=== PATIENT | male | born 1995 | race American Indian/Alaskan Native ===

== ENCOUNTER 2024-07-10 18:56 | Emergency (ER) | payer MEDICAID, SELFPAY ==
[2024-07-10 18:56] VITALS: BMI 35.7
--- NOTE | 2024-07-10 19:34 | XR_ITS ---
Examination: Abdomen sonogram, Limited Date and time of exam: July 10, 2024 1949 hrs. Indications: Flank pain beginning today Technique: Real-time hernández scale transabdominal sonographic images of the upper abdomen obtained. Findings: Absent gallbladder Common bile duct 0.5 cm stone Pancreas obscured by bowel gas Liver 15.6 cm fatty infiltration no focal liver lesions Normal hepatopedal portal venous flow Patent IVC Impression: Absent gallbladder Normal common bile duct Fatty liver
[2024-07-10 19:35] VITALS: BP 142/79; PULSE 78; RESP 20; TEMP 36.9; O2SAT 96
--- NOTE | 2024-07-10 19:35 | PD.EDRME ---
Rapid Medical Screening Exam RME Arrival date/time: 07/10/24 18:56 28 year old male with c/o of abd/flank pain today I have greeted and performed a focused initial assessment of this patient. A comprehensive ED assessment and evaluation of the patient, analysis of all test results, and completion of the medical decision making process will be conducted by additional ED providers. Chief Complaint: Back Pain/Injury Time Seen by Provider: 07/10/24 19:34 Vital signs: Vital Signs Temperature 98.4 F 07/10/24 19:35 Pulse Rate 78 07/10/24 19:35 Respiratory Rate 20 07/10/24 19:35 Blood Pressure 142/79 H 07/10/24 19:35 Pulse Oximetry (%) 96 07/10/24 19:35 Oxygen Delivery Method Room Air 07/10/24 19:35
[2024-07-10] MEDS: LIDOCAINE 5% 1 PATCH TOP (19:44)
[2024-07-10] MEDS: CYCLObenzaPRINE 5 MG TABLET PO (19:45)
[2024-07-10 20:14] LABS: Collection Type, Urine Voided; Squamous Epithelial Cell,Urine 0 /hpf (0-5)
[2024-07-10 20:18] LABS: Basophils % (Auto) 0 % (0-2.5); Eosinophils % (Auto) 1 % (0-10); Hematocrit 45.9 % (41.0-53.0); Hemoglobin 15.9 g/dL (13.5-16.0); Immature Granulocytes % (Auto) 0 % (0-0); Immature Granulocytes Auto 0.02 Thou/mm3 (0.00-0.00); Lymphocytes # (Auto) 1.7 Thou/mm3 (1.0-4.8); Lymphocytes % (Auto) 22 % (10-50); Mean Corpuscular HGB Conc 34.6 g/dl (31.0-37.0); Mean Corpuscular Hemoglobin 29.8 pg (25.0-35.0); Mean Corpuscular Volume 86 fL (80-100); Monocytes # (Auto) 0.7 Thou/mm3 (0.0-0.8); Monocytes % (Auto) 8 % (0-12); Neutrophils # (Auto) 5.3 Thou/mm3 (1.8-7.7); Neutrophils % (Auto) 69 % (37-80); Nucleated Red Blood Cell % 0 /100 WBC (0); Platelet Count 319 Thou/mm3 (140-440); RDW Standard Deviation 38.7 fL (35.1-43.9); Red Blood Count 5.33 Miln/mm3 (4.50-5.90); White Blood Count 7.7 Thou/mm3 (3.8-10.6)
[2024-07-10 20:29] LABS: Bacteria,Urine Rare; Bilirubin,Urine Negative (Negative); Blood,Urine 1+ (Negative); Color,Urine Yellow (Lt Yel-Yel); Glucose, Urine Negative (Negative); Ketones,Urine Negative (Negative); Leukocyte Esterase,Urine Negative (Negative); Nitrite,Urine Negative (Negative); Protein,Urine 1+ (Neg - Trace); RBC,Urine 11 /hpf (0-3); Specific Gravity,Urine 1.035 (1.001-1.035); Urobilinogen,Urine Negative mg/dL (0.0-1.0); WBC,Urine 3 /hpf (0-5)
[2024-07-10 20:40] LABS: Alanine Aminotransferase 14 U/L (10-49); Albumin/Globulin Ratio 1.9 (1.2-2.2); Alkaline Phosphatase 78 U/L (46-116); Anion Gap 7 (7-16); Aspartate Amino Transferase 17 U/L (0-34); BUN/Creatinine Ratio 12 Ratio (12-20); Bilirubin,Total 0.9 mg/dL (0.3-1.2); Blood Urea Nitrogen 12 mg/dL (9-23); Calcium 10.2 mg/dL (8.3-10.6); Calcium (Corrected) 10.2 mg/dL (8.5-10.1); Carbon Dioxide 29.8 mMol/L (20.0-31.0); Chloride 104 mMol/L (98-107); Estimated Creatinine Clearance 120.2 mL/min (>60); Globulin 2.7 gm/dL (2.3-3.5); Glucose 89 mg/dL (74-106); Lipase 40 U/L (12-53); Osmolality,Calculated 279 (275-295); Sodium 141 mMol/L (136-145); Total Protein 7.7 gm/dL (5.7-8.2); eGFR > 60 See Note
[2024-07-10 21:14] LABS: Clarity,Urine Hazy (Clear/Hazy)
--- NOTE | 2024-07-10 21:50 | XR_ITS ---
Examination: CT chest, without intravenous contrast. CT abdomen, without intravenous contrast. CT pelvis, without intravenous contrast. 2-D sagittal and coronal reconstructions. 3-D reconstructions. Date and time of exam:July 10, 2024 at 10:00 PM Indications: Chest and upper back pain today no injury CTDI vol (mgy) 11.61 DLP (MGycm)1024 Technique: Multiple CT images, 3.0 mm slice thickness, obtained chest, abdomen, pelvis, with the high-resolution 64 slice scanner.. Sagittal and coronal 2-D reconstructions are obtained. 3-D reconstructions Low dose protocols were performed. One or more of the following dose reduction techniques were used; automated exposure control, adjustment of the mA and/or KV according to patient size, use of iterative reconstruction technique. Findings: Thoracic aorta pulmonary arteries intact No hemopericardium No pneumonia or pulmonary edema or pleural disease No visualized liver or splenic lesion Absent gallbladder No pancreatic or adrenal mass Solid mass anterior right kidney 32 x 39 mm 2 mm right renal calculus No hydronephrosis or ureteral calculi Aorta normal size Normal appendix No bowel obstruction No diverticulitis Contracted urinary bladder No prostatomegaly Mild disc narrowing L5-S1, 4 mm right paracentral disc bulge L5-S1 displacing the right S1 nerve root Impression: Solid mass anterior right kidney 32 x 39 mm, differential would include renal cell carcinoma Recommend MRI abdomen kidneys follow-up pre and postcontrast 2 mm nonobstructing right renal calculus Normal appendix L5-S1 4 mm right paracentral disc bulge displacing the right S1 nerve root
--- NOTE | 2024-07-10 21:54 | EDNOTE_ITS ---
ED General RME/HPI General Chief complaint: Back Pain/Injury Stated complaint: MID BACK PAIN, NO INJURY Time Seen by Provider: 07/10/24 19:34 Arrival date/time: 07/10/24 18:56 CC: Right mid back pain HPI ongoing for the past 4 to 5 days progressive increase in severity no prior history of similar events. Denies any nausea vomiting shortness of breath cough difficulty breathing. Does not radiate anywhere patient was given lidocaine patch open most relaxer without relief. The patient is in moderate discomfort but not in any acute distress. RME / HPI RME / HPI narrative: 07/10/24 18:56 28 year old male with c/o of abd/flank pain today I have greeted and performed a focused initial assessment of this patient. A comprehensive ED assessment and evaluation of the patient, analysis of all test results, and completion of the medical decision making process will be conducted by additional ED providers. Related Data Previous Rx's ?Medication ?Instructions ?Recorded docusate sodium 100 mg capsule 100 mg PO BID #40 caps 03/15/24 (Colace) hydrocodone 5 mg-acetaminophen 325 1 tab PO Q6H PRN pain (scale score 03/15/24 mg tablet 7-10) #15 tabs ibuprofen 600 mg tablet 600 mg PO Q8H PRN pain (scale 03/15/24 score 4-6) #15 tabs meloxicam 7.5 mg tablet 7.5 mg PO QDAY #10 tabs 07/10/24 Allergies Allergy/AdvReac Type Severity Reaction Status Date / Time celecoxib [From Celebrex] Allergy Intermediate Rash Verified 07/10/24 18:59 Review of Systems Review of Systems Narrative Review of Systems: GEN: No fever, no chills, no weight loss EYES: No discharge, no visual changes, no pain HEENT: No ear pain, no congestion, no sore throat PULM: No shortness of breath, no cough, no congestion CV: No chest pain, no dyspnea on exertion, no palpitations GI: No nausea, no vomiting, no diarrhea, no pain, no constipation : No frequency, no urgency, no dysuria MUSC/SKEL: No joint pain, + back pain SKIN: No rash PSYCH: No hallucinations, no depression HEME/LYMPH: No easy bleeding or bruising tendencies NEURO: No weakness, no headache Past Medical History Past Medical History NEUROLOGIC: Negative Neurological Disorders or Seizures CARDIAC: Negative Cardiac Disorders, Congestive Heart Failure or Hypertension RESPIRATORY: Negative Chronic Obstructive Pulmonary Disease (COPD) or Asthma GASTROINTESTINAL: Positive Gastrointestinal Disorders, Gall Bladder Disease, Diverticulitis and Obesity; Negative Hepatitis, Pancreatitis, Colitis, Ulcerative Colitis, Diverticulosis, Ulcer, Irritable Bowel, Crohn's Disease, Hemorrhoids or Gastroesophageal Reflux Disease GENITOURINARY: Positive Genitourinary Disorders and Kidney Stones; Negative Renal Disease MUSCULOSKELETAL: Negative Musculoskeletal Disorders ENT: Negative Glaucoma ENDOCRINE: Negative Endocrine Disorders, Diabetes Mellitus Type 1 or Diabetes Mellitus Type 2 HEMATOLOGIC: Negative Blood Disorders or Sickle Cell Disease OTHER HISTORY: Positive Hospitalization (diverticulitis); Negative Autoimmune Disease, Shingles, Falls, Blood Transfusions, Blood Transfusion Reaction, Anesthesia Reactions, Clostridium Difficile or Cancer Family History FAMILY HISTORY: Positive Family Surgery; Negative Family Psychiatric Problems, Family Respiratory Disorders, Family Cardiac Disorders, Family Gastrointestinal Problems, Family Cancer or Family Anesthesia Reaction Social History SMOKING STATUS: Current every day smoker SECOND HAND EXPOSURE: No ED Exam Narrative Physical exam: [General: Obese in mild discomfort but not in any acute distress Head normocephalic HEENT: Within acceptable limits Neck is supple nontender Chest equal chest rise nontender to palpation Respiratory: Clear to auscultation no wheezes crackles or rubs CV: Rate rhythm is regular no murmurs rubs or clicks Abdomen is distended secondary to body habitus soft nontender no masses positive bowel sounds all 4 quadrants Back: Site-specific tenderness to palpation just lateral to the right scapula, with no radiation not really producible with deep inhalation cough. No low back no paraspinal thoracic or lumbar tenderness with palpation. Skin: Intact no petechiae rash induration ulceration or crepitus Extremities: Moving all extremity against resistance cap refill less than 2 seconds neurosensory intact Neuro: Awake alert oriented x3 Glascow coma 15 no focal deficits] Course Quality Measures none Orders Category Date Time Status CT chest abdomen pelvis wo Stat Exams 07/10/24 21:50 Completed US abdomen limited Stat Exams 07/10/24 19:34 Completed CBC Stat Lab 07/10/24 20:00 Completed CMP [Comprehensive Metabolic Panel] Stat Lab 07/10/24 20:00 Completed Lipase Stat Lab 07/10/24 20:00 Completed UA [Urinalysis] Stat Lab 07/10/24 20:00 Completed CYCLObenzaPRINE [Flexeril] Med 07/10/24 19:34 Discontinued 5 mg PO X1 ONE Lidocaine 5% Patch Med 07/10/24 19:34 Discontinued 1 patch TOP X1 ONE oxyCODONE/APAP 5/325 [Percocet 5/325] Med 07/10/24 21:50 Discontinued 1 tab PO X1 ONE Vital Signs Vital signs: Vital Signs Temperature 98.4 F 07/10/24 19:35 Pulse Rate 78 07/10/24 19:35 Respiratory Rate 20 07/10/24 19:35 Blood Pressure 142/79 H 07/10/24 19:35 Pulse Oximetry (%) 96 07/10/24 19:35 Oxygen Delivery Method Room Air 07/10/24 19:35 [facility] Patient data External records reviewed:: [facility] previous records Clinical information provided by:: patient Social determinants that could affect healthcare access:: none Patient has the following chronic illnesses:: Obesity How is presenting disease/condition affected by chronic disease/condition?: u neffected by Evaluation data The following diagnostics were reviewed and interpreted by me:: lab results and radiology exam(s) Lab and/or radiology exams considered but not ordered:: CBC shows no acute leukocytosis anemia thrombocytopenia CMP shows no acute electrolyte imbalances renal impairment transaminitis or T. bili elevation Urine is negative for UTI. Ultrasound shows a absent gallbladder as interpreted by me and read by radiology. CT chest and pelvis shows a right kidney mass of 3 x 4 cm. Interpretation Summary: Upon initial assessment this is high up on the center back I am concerned this is not abdominal in nature although the patient has no cough or fever I am concerned that there may be a chest component to this. Will do CT chest abdomen pelvis without contrast to determine any significant source of the pain. At 2237 patient was advised that he has a right kidney mass that is 3.3 x 3.9 cm, and I believe this is the source of his pain. Patient given a copy of the CT and he is immediately to follow-up with his primary care for referral for outpatient biopsy. Patient will be given NSAIDs for pain relief and advised if there is a worsening of symptoms in spite of the medications he can always return the emergency room for further evaluation. Medications Medications considered but not ordered:: None Medication administrations:: Medication Administration History Discontinued Medications Cyclobenzaprine HCl (Cyclobenzaprine 5 Mg Tablet) 5 mg PO X1 ONE Stop: 07/10/24 19:35 Last Admin: 07/10/24 19:45 Dose: 5 mg Documented By: SF Lidocaine (Lidocaine 5% 1 Patch) 1 patch TOP X1 ONE Stop: 07/10/24 19:35 Last Admin: 07/10/24 19:44 Dose: 1 patch Documented By: SF Oxycodone/Acetaminophen (Oxycodone/Apap 5/325 Tablet) 1 tab PO X1 ONE Stop: 07/10/24 21:51 Last Admin: 07/10/24 22:14 Dose: 1 tab Documented By: CCT None Consultations Consultation(s) initiated? (list below): No Diagnosis Differential Diagnosis ED Complaint MDM: Urolithiasis hydroureter hydronephrosis Most likely diagnosis given after review of the tests above:: Kidney mass Admission Indicated Admission indicated?: not indicated Explain why admission is indicated or not indicated:: Stable for outpatient follow-up Admission Request Was there a request for admission?: No Disposition Plan Disposition Plan: Discharge Discharge Attestation Discharge Attestation: The patient and all family members were given an opportunity to ask questions and understood the discharge instructions. Discharge instructions specifically effects, indications for sooner follow up or return to the emergency department, and the expected course of current diagnosis. Patient condition: Stable Medical Decision Making Differential Diagnosis Differential Diagnosis: Urolithiasis hydroureter hydronephrosis Lab Data 07/10/24 20:00 07/10/24 20:00 Labs: Lab Results 07/10/24 Range/Units 20:00 WBC 7.7 (3.8-10.6) Thou/mm3 RBC 5.33 (4.50-5.90) Miln/mm3 Hgb 15.9 (13.5-16.0) g/dL Hct 45.9 (41.0-53.0) % MCV 86 (80-100) fL MCH 29.8 (25.0-35.0) pg MCHC 34.6 (31.0-37.0) g/dl RDW Std Deviation 38.7 (35.1-43.9) fL Plt Count 319 (140-440) Thou/mm3 Neut % (Auto) 69 (37-80) % Lymph % (Auto) 22 (10-50) % [place] % (Auto) 8 (0-12) % Eos % (Auto) 1 (0-10) % Baso % (Auto) 0 (0-2.5) % Neut # (Auto) 5.3 (1.8-7.7) Thou/mm3 Lymph # (Auto) 1.7 (1.0-4.8) Thou/mm3 [place] # (Auto) 0.7 (0.0-0.8) Thou/mm3 Eos # (Auto) 0.0 (0.0-0.5) Thou/mm3 Baso # (Auto) 0.0 (0.0-0.2) Thou/mm3 Immature Gran # (Auto) 0.02 H (0.00-0.00) Thou/mm3 Absolute Nucleated RBC 0.00 (0.00-0.00) Thou/mm3 Immature Gran % 0 (0-0) % Nucleated RBC % 0 (0) /100 WBC Sodium 141 (136-145) mMol/L Potassium 4.0 (3.4-5.1) mMol/L Chloride 104 (98-107) mMol/L Carbon Dioxide 29.8 (20.0-31.0) mMol/L Anion Gap 7 (7-16) BUN 12 (9-23) mg/dL Creatinine 1.0 (0.6-1.3) mg/dL Estim Creat Clear Calc 120.2 (>60) mL/min eGFR > 60 (60 - ) See Note BUN/Creatinine Ratio 12 (12-20) Ratio Glucose 89 (74-106) mg/dL Calculated Osmolality 279 (275-295) Calcium 10.2 (8.3-10.6) mg/dL Corrected Calcium 10.2 H (8.5-10.1) mg/dL Total Bilirubin 0.9 (0.3-1.2) mg/dL AST 17 (0-34) U/L ALT 14 (10-49) U/L Alkaline Phosphatase 78 (46-116) U/L Total Protein 7.7 (5.7-8.2) gm/dL Albumin 5.0 (3.5-5.0) gm/dL Globulin 2.7 (2.3-3.5) gm/dL Albumin/Globulin Ratio 1.9 (1.2-2.2) Lipase 40 (12-53) U/L Ur Collection Type Voided Urine Color Yellow (Lt Yel-Yel) Urine Clarity Hazy (Clear/Hazy) Urine pH 6.0 (5.0-7.0) Ur Specific [place] 1.035 (1.001-1.035) Urine Protein 1+ A (Neg - Trace) Urine Glucose (UA) Negative (Negative) Urine Ketones Negative (Negative) Urine Blood 1+ A (Negative) Urine Nitrite Negative (Negative) Urine Bilirubin Negative (Negative) Urine Urobilinogen (Auto) Negative (0.0-1.0) mg/dL Ur Leukocyte Esterase Negative (Negative) Urine RBC 11 H (0-3) /hpf Urine WBC 3 (0-5) /hpf Ur Squamous Epith Cells 0 (0-5) /hpf Urine Bacteria Rare (None) Discharge Plan Plan Patient Disposition: HOME (Self Care) Patient condition on transfer: Stable Prescriptions/Referrals Prescriptions/Med Rec: New meloxicam 7.5 mg tablet 7.5 mg PO QDAY Qty: 10 0RF No Action docusate sodium [Colace] 100 mg capsule 100 mg PO BID Qty: 40 0RF hydrocodone-acetaminophen 5-325 mg tablet 1 tab PO Q6H MDD 4 PRN (Reason: pain (scale score 7-10)) Qty: 15 0RF ibuprofen 600 mg tablet 600 mg PO Q8H PRN (Reason: pain (scale score 4-6)) Qty: 15 0RF Referrals: Haim Torres PA-C [Primary Care Provider] - In 1 week Problem List Clinical Impression: Mid back pain on right side, Mass of right kidney Patient/Caregiver Discharge Instructions Other Activity Instructions:: Follow-up with your primary care provider. Take the medications as prescribed for temporary pain relief. May need an outpatient biopsy to determine source of the mass. If there is a worsening of symptoms in spite of the medications return the emergency room for reevaluation. Education Materials: ED Back and Neck Pain, General Additional Instructions: You have a mass in your right kidney, the CT report given to you gives the details please follow-up with your primary care provider. Print Language: Luxembourgish Stand Alone Forms: [employer] Award Info., Work/School Release, Patient Portal Info Letter
[2024-07-10] MEDS: oxyCODONE/APAP 5/325 TABLET 1 TAB PO (22:14)
[2024-07-10 22:15] VITALS: BP 121/76; PULSE 81; RESP 20; TEMP 36.9; O2SAT 98
== END 2024-07-10 22:45 | disposition home or self-care (01) ==
PROVIDERS: Physician Assistant; Emergency Provider Emergency Medicine; PCP Physician Assistant
DX: N28.89 Other specified disorders of kidney and ureter (principal); M54.6 Pain in thoracic spine
CPT/HCPCS: 36415; 71250; 74176; 76705; 80053; 81001; 83690; 85025; 99284; A9270

== ENCOUNTER → 2024-08-10 | Outpatient (CLI) | payer SELFPAY ==
--- NOTE | 2024-08-10 08:30 | XR_ITS ---
Examination: MRI abdomen with intravenous contrast. MRI abdomen without intravenous contrast. Date and time of exam: August 10, 2024 0926 hours INDICATIONS: Right-sided abdominal pain beginning 2 weeks ago, solid mass anterior right kidney 32 x 39 mm abdomen study July 10, 2024 Technique: Multiple axial, sagittal and coronal sections of the abdomen obtained. Transverse images, TR 6020, TE 107. T1 weighted transverse images, TR 582, TE 9.5. T2-weighted sagittal images, TR 4000, TE 105. T2-weighted sagittal images, TR 4000, TE 5. Coronal images, TR 4210, TE 107. Axial and coronal images are obtained post 20 cc intravenous injection, gadolinium. Findings: No focal liver lesions Absent gallbladder Normal common hepatic common bile duct No splenic lesions Mass anterior right kidney, 32 x 38 mm with irregular enhancement No tumor thrombus in the renal veins or inferior vena cava No left renal mass lesion Aorta normal size No ascites IMPRESSION: Anterior right renal enhancing tumor mass 32 x 38 mm, most consistent with renal cell carcinoma
--- NOTE | 2024-08-10 09:30 | XR_ITS ---
Examination: MRI pelvis with intravenous contrast. MRI of pelvis without intravenous contrast. Date and time of exam: August 10, 2024 0926 hours INDICATIONS: Right renal cell tumor mass on CT abdomen study July 10, 2024, staging Technique: Multiple axial, sagittal and coronal sections of the pelvis obtained. Transverse images, TR 6020, TE 107. T1 weighted transverse images, TR 582, TE 9.5. T2-weighted sagittal images, TR 4000, TE 105. T2-weighted sagittal images, TR 4000, TE 5. Coronal images, TR 4210, TE 107. Axial and coronal images are obtained post 20 cc intravenous injection, gadolinium. Findings: No common iliac and external iliac internal iliac or common femoral lymphadenopathy Transverse prostate dimension 29 mm Normal seminal vesicles No bladder mass or bladder calculi Homogeneous osseous marrow signal No enhancing lesions on the postcontrast images IMPRESSION: No interval metastatic disease
== END | disposition home or self-care (01) ==
LOC: SMRI 08:27
PROVIDERS: PCP Internal Medicine; Referring Provider Internal Medicine; Visit Provider Internal Medicine
DX: R19.09 Other intra-abdominal and pelvic swelling, mass and lump (principal)
CPT/HCPCS: 72197; 74183; A9579

== ENCOUNTER → 2024-09-15 | Outpatient (BNVA) | payer MEDICAID, SELFPAY | END | disposition home or self-care (01) | PROVIDERS: PCP Physician Assistant; Referring Provider Physician Assistant; Visit Provider Urology | DX: N28.89 Other specified disorders of kidney and ureter (principal); E66.01 Morbid (severe) obesity due to excess calories; Z68.34 Body mass index [BMI] 34.0-34.9, adult | CPT/HCPCS: 81003; 99212; G0463 ==

== ENCOUNTER 2024-09-24 14:54 | Emergency (ER) | payer MEDICAID, SELFPAY ==
[2024-09-24 15:02] VITALS: BP 141/96; PULSE 83; RESP 20; TEMP 36.9; O2SAT 96
--- NOTE | 2024-09-24 15:05 | XR_ITS ---
Exam: 3 views of the lumbar spine INDICATION: Back pain, no trauma. Comparison exam: April 01, 2012 FINDINGS: No scoliosis. No evidence of fracture or dislocation. No degenerative changes, foreign body or soft tissue abnormality. IMPRESSION: Negative exam. Additional diagnostic confirmed.
--- NOTE | 2024-09-24 15:06 | EDNOTE_ITS ---
ED Back Injury Pain RME/HPI General Chief Complaint: Back Pain/Injury Stated Complaint: LEFT FLANK PAIN Time Seen by Provider: 09/24/24 15:01 Arrival date/time: 09/24/24 14:54 RME / HPI RME / HPI Narrative: 28-year-old male patient came in for evaluation regarding low back pain. Onset of symptoms since yesterday as sudden onset of low back pain, described as dull ache, severity moderate. Patient denies any fever denies any saddle anesthesia denies any urinary incontinence. Denies any bowel incontinence. Patient is ambulatory. Had a history of recent fall landing on his knee a week ago. Followed by urologist for bladder problem and renal problem according to him. Related Data Previous Rx's ?Medication ?Instructions ?Recorded cyclobenzaprine 10 mg tablet 10 mg PO TID PRN muscle s pasm #20 09/24/24 tabs ketorolac 10 mg tablet 10 mg PO Q8H PRN pain 5 days #20 09/24/24 tabs Allergies Allergy/AdvReac Type Severity Reaction Status Date / Time celecoxib (From Celebrex) Allergy Intermediate Rash Verified 09/24/24 14:57 Review of Systems Review of Systems Narrative Review of Systems: Review of system reviewed and within normal limits except mentioned in HPI ED Exam Narrative Physical exam: VITAL SIGNS: Reviewed. GENERAL APPEARANCE: Alert and interactive, follows commands, no acute distress, HEAD AND FACE: Non-traumatic. ENT: PERRL, pink conjunctivitis, eyelid no trauma, Mucous membrane moist. NECK: Supple, nontender, no nuchal rigidity. CHEST: No tenderness, no crepitus, no paradoxical movement, no retractions. LUNGS: Clear, well ventilated, symmetric, no rales, no wheezing, no ronchi, no stridor, good breath sounds bilaterally. HEART: Regular rate, regular rhythm, no murmur, no gallops. ABDOMEN: Soft, positive bowel sounds, nondistended, no guarding, nontender, no rebound, no masses, RECTAL: Deferred. GENITAL: Deferred. NEUROLOGICAL: Gross motor function intact sensory function intact, Appropriate for age. MUSCULOSKELETAL: low back tenderness, full range of motion. EXTREMITIES: Nontender, full range of motion. SKIN: Color pink, dry, no rash, no lacerations, no abrasions, no contusions. LYMPHATICS: Deferred. Course Quality Measures none Orders Category Date Time Status XR lumbar spine 2-3V Stat Exams 09/24/24 15:05 Completed UA, C/S IF [Urinalysis, C/S if Indicated] Stat Lab 09/24/24 15:27 Completed CYCLObenzaPRINE [Flexeril] Med 09/24/24 15:05 Discontinued 1 mg PO X1 ONE CYCLObenzaPRINE [Flexeril] Med 09/24/24 15:50 Discontinued 10 mg PO X1 ONE Ketorolac Inj [Toradol Inj] Med 09/24/24 15:05 Discontinued 30 mg IM X1 ONE Vital Signs Vital signs: Vital Signs Temperature 98.4 F 09/24/24 15:02 Pulse Rate 83 09/24/24 15:02 Respiratory Rate 20 09/24/24 15:02 Blood Pressure 141/96 H 09/24/24 15:02 Pulse Oximetry (%) 96 09/24/24 15:02 Oxygen Delivery Method Room Air 09/24/24 15:02 Back Pain / Injury MDM Narrative MDM Narrative:: 28-year-old male patient came in for evaluation regarding low back pain. Onset of symptoms since yesterday as sudden onset of low back pain, described as dull ache, severity moderate. Patient denies any fever denies any saddle anesthesia denies any urinary incontinence. Denies any bowel incontinence. Patient is ambulatory. Had a history of recent fall landing on his knee a week ago. Followed by urologist for bladder problem and renal problem according to him. X-ray of the lumbar spine came back unremarkable. Urinalysis no UTI. Patient was given Toradol IM with significant improvement of symptoms. Further imaging is not at this time, patient is showing any cauda equina syndrome, patient is not having any saddle anesthesia, no urinary incontinence no bowel incontinence. Patient is ambulatory. Not limping no paresthesia or anesthesia lower extremities Patient appears nontoxic and hemodynamically stable. Patient discharged home and instructed to follow-up with primary care provider in 24 to 48 hours. Instructed to return to the emergency department immediately if worsening of symptoms Patient data External records reviewed:: None Clinical information provided by:: patient Social determinants that could affect healthcare access:: none Patient has the following chronic illnesses:: None How is presenting disease/condition affected by chronic disease/condition?: no chronic disease Evaluation data The following diagnostics were reviewed and interpreted by me:: lab results and radiology exam(s) Lab and/or radiology exams considered but not ordered:: None Interpretation Summary: See results in [facility] Medications / Prescriptions Medications or Prescriptions considered but not ordered:: None Medication administrations:: Medication Administration History Discontinued Medications Cyclobenzaprine HCl (Cyclobenzaprine 5 Mg Tablet) 1 mg PO X1 ONE Stop: 09/24/24 15:06 Last Admin: 09/24/24 15:54 Dose: Not Given Documented By: SERA Non-Admin Reason: Cancelled by Provider Cyclobenzaprine HCl (Cyclobenzaprine 5 Mg Tablet) 10 mg PO X1 ONE Stop: 09/24/24 15:51 Last Admin: 09/24/24 15:53 Dose: 10 mg Documented By: SERA Ketorolac Tromethamine (Ketorolac Inj 60 Mg/2 Ml Vial) 30 mg IM X1 ONE Stop: 09/24/24 15:06 Last Admin: 09/24/24 15:28 Dose: 30 mg Documented By: SERA Toradol IM, Flexeril Consultations Consultation(s) initiated? (list below): No Diagnosis Differential diagnosis back pain/injury: lumbar radiculopathy and sciatica Most likely diagnosis given after review of the tests above:: Acute low back pain Admission Indicated Admission indicated?: not indicated Admission Request Was there a request for admission?: No Disposition Plan Disposition Plan: Discharge Discharge Attestation Discharge Attestation: The patient was given an opportunity to ask questions and understood the discharge instructions. Discharge instructions specifically effects, indications for sooner follow up or return to the emergency department, and the expected course of current diagnosis. Patient condition: Stable Discharge Plan Plan Patient Disposition: HOME (Self Care) Disposition Comment: Stable Prescriptions/Referrals Prescriptions/Med Rec: New ketorolac 10 mg tablet 10 mg PO Q8H PRN (Reason: pain) 5 Days Qty: 20 0RF cyclobenzaprine 10 mg tablet 10 mg PO TID PRN (Reason: muscle spasm) Qty: 20 0RF Referrals: Kerri Torres MD [Primary Care Provider] - In 1 week Problem List Clinical Impression: Low back pain Patient/Caregiver Discharge Instructions Discharge Activity: activity as tolerated Education Materials: Back Exercises: Lower Back Stretch Additional Instructions: Thank you for the opportunity for serving you today. You are stable for discharged . You are advised to: Follow-up with your PCP in 1 to 2 days Return to ED for worsening of symptoms Increase oral fluids Take medication as prescribed Print Language: Czech Stand Alone Forms: Daya Award Info., Patient Portal Info Letter PA/[employer] Supervising Physician PA/[employer] Supervising Physician: MD Tanya
[2024-09-24] MEDS: KETOROLAC INJ 60 MG/2 ML VIAL 30 MG IM (15:28)
[2024-09-24 15:36] LABS: Collection Type, Urine Clean Catch
[2024-09-24 15:51] LABS: Bilirubin,Urine Negative (Negative); Blood,Urine Negative (Negative); Clarity,Urine Clear (Clear/Hazy); Color,Urine Yellow (Lt Yel-Yel); Culture Indicated,Urine Not Indicated; Glucose, Urine Negative (Negative); Ketones,Urine 2+ (Negative); Leukocyte Esterase,Urine Negative (Negative); Nitrite,Urine Negative (Negative); Protein,Urine 1+ (Neg - Trace); RBC,Urine 3 /hpf (0-3); Specific Gravity,Urine 1.035 (1.001-1.035); Squamous Epithelial Cell,Urine < 1 /hpf (0-5); Urobilinogen,Urine Negative mg/dL (0.0-1.0); WBC,Urine 1 /hpf (0-5)
[2024-09-24] MEDS: CYCLObenzaPRINE 5 MG TABLET 10 MG PO (15:53)
== END 2024-09-24 17:45 | disposition home or self-care (01) ==
PROVIDERS: Nurse Practitioner Family; Emergency Provider Family Medicine; PCP Internal Medicine
DX: M54.50 Low back pain, unspecified (principal)
CPT/HCPCS: 72100; 81001; 96372; 99283; J1885; A9270

== ENCOUNTER → 2024-10-28 | Outpatient (BNVA) | payer MEDICAID, SELFPAY | END | disposition home or self-care (01) | PROVIDERS: PCP Internal Medicine; Referring Provider Internal Medicine; Visit Provider Urology | DX: N28.89 Other specified disorders of kidney and ureter (principal); F17.210 Nicotine dependence, cigarettes, uncomplicated | CPT/HCPCS: 99212; G0463 ==

== ENCOUNTER → 2024-11-15 | Outpatient (CLI) | payer MEDICAID, SELFPAY ==
--- NOTE | 2024-11-15 15:22 | XR_ITS ---
Examination: Abdomen 2 views TECHNIQUE: AP upright AP supine abdomen 2 views Exam date and time: November 15, 2024 1539 hours INDICATIONS: Abdominal pain this month FINDINGS: Moderate to large amounts of stool throughout the colon No obstruction No free air Opacity 24 mm projects in the pelvis, clinical correlation advised IMPRESSION: Moderate to large amounts of stool throughout the colon
== END | disposition home or self-care (01) ==
PROVIDERS: PCP Nurse Practitioner Family; Referring Provider Nurse Practitioner Family; Visit Provider Nurse Practitioner Family
DX: Z09 Encounter for follow-up examination after completed treatment for conditions other than malignant neoplasm (principal); K59.00 Constipation, unspecified; C64.1 Malignant neoplasm of right kidney, except renal pelvis; N28.89 Other specified disorders of kidney and ureter
CPT/HCPCS: 74019

== ENCOUNTER → 2025-01-24 | Outpatient (BNVA) | payer MEDICAID, SELFPAY | END | disposition home or self-care (01) | PROVIDERS: PCP Physician Assistant; Referring Provider Physician Assistant; Visit Provider Urology | DX: Z53.29 Procedure and treatment not carried out because of patient's decision for other reasons (principal) | CPT/HCPCS: 81003; 96372; J1580; A9270 ==